=== PATIENT | male | born 1955 | race Caucasian/White ===

== ENCOUNTER → 2016-08-12 | Outpatient (CLI) | payer MEDICAID ==
[~2016-08-12] MED LIST: ALL100T PO; AML5T PO; ATOR40TA52 PO; CLOP75TA41 PO; COLC0.6T56 PO; FENO145T20 PO; INSUINJ37 SC; INSUINJ9 IJ; ISOS30TA4 PO; LEVO75TA50 PO; METO25TA62 PO; NITR0.4S29 SL
[2016-08-12 10:10] VITALS: BP 144/55
[2016-08-12 10:45] VITALS: BP 138/66
[2016-08-12 16:30] LABS: Basophils # (auto) 0 uL; Basophils % (auto) 0.4 % (0.0-2.0); Eosinophils # (auto) 0.2 uL; Eosinophils % (auto) 3.1 % (0.0-7.0); Hematocrit 42.6 % (41.0-53.0); Hemoglobin 13.7 g/dL (13.5-17.5); Lymphocytes # (auto) 1.9 uL; Lymphocytes % (auto) 23.2 % (10.0-50.0); Mean Corpuscular Hemoglobin 31.9 pg (28.0-32.0); Mean Corpuscular Hgb Conc. 32.2 g/dL (32.0-36.0); Mean Corpuscular Volume 99.2 fL (80.0-100.0); Mean Platelet Volume 8.9 fL (7.4-10.4); Monocytes # (auto) 0.8 uL; Monocytes % (auto) 9.4 % (0.0-12.0); Neutrophils # (auto) 5.1 uL; Neutrophils % (auto) 63.9 % (37.0-80.0); Platelet Count (auto) 203 10^3/uL (140-450); Red Cell Distribution Width 15.1 % (11.6-16.0); White Blood Cell 8.1 10^3/uL (4.4-10.8)
[2016-08-12 16:52] LABS: BUN/Creatinine Ratio 15.7; Calcium 8.1 mg/dL (8.5-10.1); Potassium 4.8 mmol/L (3.5-5.1)
[2016-08-12 17:07] LABS: INR 1.11 (0.9-1.15); Partial Thromboplastin Time 27.1 sec (22.64-33.71); Prothrombin Time 11.4 sec (9.37-12.3)
== END | disposition home or self-care (01) ==
LOC: Rad HDHVI 09:45
PROVIDERS: ATTEND Internal Medicine Cardiovascular Disease
DX: I10 Essential (primary) hypertension (principal); D64.9 Anemia, unspecified; R79.1 Abnormal coagulation profile
CPT/HCPCS: 36415; 71020; 80048; 85025; 85049; 85610; 85730; G0463

== ENCOUNTER 2016-08-14 12:03 | Inpatient (IN) | payer MEDICAID ==
[~2016-08-14] VITALS: Ht 177.8 cm; Wt 98.9 kg
[2016-08-14] MEDS ORDERED: LIDOCAINE 2%HCL (LOCAL ANESTH.) INJ 20ML MDV ONE ×2 (13:31→14:12)
[2016-08-14] MEDS ORDERED: IOHEXOL 350 MG/ML 100ML IJ ONE (13:31)
[2016-08-14] MEDS ORDERED: SODIUM CHL 0.9% 50 ML ONE (13:42)
[2016-08-14] MEDS ORDERED: fentaNYL CITRATE 100 MCG/2 ML VL ONE (13:42)
[2016-08-14] MEDS ORDERED: MIDAZOLAM HCL 1MG/1ML-2 ML VIAL ONE (13:42)
[2016-08-14] MEDS ORDERED: ANGIOMAX 250 MG VIAL IV ONE (13:42)
[2016-08-14] MEDS ORDERED: SODIUM CHLORIDE 0.9% 1,000 ML IV SCH (15:37)
[2016-08-14] MEDS ORDERED: HYDROcodone-ACET 5/325MG TAB PO PRN (15:45)
[2016-08-14] MEDS ORDERED: DEXTROSE (50%) 50ML SYRG IV PRN (15:45)
[2016-08-14] MEDS ORDERED: MORPHINE SULF INJ 2 MG/ML SYRINGE 1ML IV PRN (15:45)
[2016-08-14] MEDS ORDERED: ALBUTEROL SULF 2.5 MG/0.5ML(0.5%) NEB SOLN NEB PRN (15:45)
[2016-08-14] MEDS ORDERED: ACETAMINOPHEN 500 MG TAB PO PRN (15:45)
[2016-08-14] MEDS ORDERED: amLODIPine BESYLATE 5 MG TAB PO ONE (16:15)
[2016-08-14] MEDS ORDERED: CLOPIDOGREL BISULFATE 75 MG TAB PO ONE (16:15)
[2016-08-14] MEDS ORDERED: ALLOPURINOL 100 MG TAB PO ONE (16:15)
[2016-08-14] MEDS ORDERED: ISOSORBIDE DINITRATE 10 MG TAB PO ONE (16:15)
[2016-08-14 16:24] VITALS: BP 160/72
[2016-08-14 16:53] VITALS: BP 160/72
[2016-08-14] MEDS: ACCU-CHEK COMFORT CURVE STRIP VI SCH ×2 (17:00→21:59)
[2016-08-14] MEDS: InsuLIN REG 1unit/0.01ml Soln (100units/ml) SC SCH (17:00)
[2016-08-14] MEDS ORDERED: PATIENTS OWN MEDICATION (Atorvastatin Calcium 1 TAB) PO SCH ×2 (18:00)
[2016-08-14] MEDS ORDERED: ATORVASTATIN 20 MG TAB PO SCH (18:00)
[2016-08-14 21:43] VITALS: BP 178/77
[2016-08-14] MEDS: SODIUM CHLOR 0.9% PF (SALINE LOCK) 10ML VIAL IV SCH (21:54)
[2016-08-14] MEDS: METOPROLOL TARTRATE 25 MG TAB PO SCH (21:57)
[2016-08-14] MEDS: COLCHICINE 0.6 MG TAB/CAP PO SCH (21:58)
[2016-08-14] MEDS ORDERED: COLCHICINE 0.6 MG TAB/CAP PO SCH (22:00)
[2016-08-14] MEDS ORDERED: INSULIN GLARGINE 15 UNIT SC SCH (22:00)
[2016-08-14] MEDS ORDERED: INSULIN DETEMIR(LEVEMIR) 1unit/0.01ml Soln (100units/ml) SC SCH (22:00)
[2016-08-14] MEDS ORDERED: PATIENTS OWN MEDICATION (Metoprolol Succinate (Metoprolol Succinate Er) 1 TAB) PO SCH ×2 (22:00)
[2016-08-14] MEDS ORDERED: InsuLIN REG 1unit/0.01ml Soln (100units/ml) SC SCH (22:00)
[2016-08-14] MEDS ORDERED: FENO145T20 PO (22:58)
[2016-08-14 23:08] VITALS: BP 178/77
[2016-08-15 05:34] VITALS: BP 152/67
[2016-08-15 06:50] LABS: BUN/Creatinine Ratio 21.1; Calcium 8.9 mg/dL (8.5-10.1)
[2016-08-15] MEDS: SODIUM CHLOR 0.9% PF (SALINE LOCK) 10ML VIAL IV SCH ×2 (06:51→14:00)
[2016-08-15] MEDS: ACCU-CHEK COMFORT CURVE STRIP VI SCH ×2 (06:51→11:30)
[2016-08-15] MEDS: InsuLIN REG 1unit/0.01ml Soln (100units/ml) SC SCH ×2 (06:51→11:30)
[2016-08-15] MEDS ORDERED: LEVOTHYROXINE SODIUM 25 MCG TAB PO SCH (07:00)
[2016-08-15 08:46] LABS: Basophils # (auto) 0 uL; Basophils % (auto) 0.3 % (0.0-2.0); Eosinophils # (auto) 0.3 uL; Hematocrit 46.3 % (41.0-53.0); Hemoglobin 15.4 g/dL (13.5-17.5); Lymphocytes # (auto) 1.9 uL; Lymphocytes % (auto) 18.4 % (10.0-50.0); Mean Corpuscular Hgb Conc. 33.3 g/dL (32.0-36.0); Mean Corpuscular Volume 96.4 fL (80.0-100.0); Mean Platelet Volume 8.6 fL (7.4-10.4); Monocytes % (auto) 10.3 % (0.0-12.0); Neutrophils # (auto) 6.9 uL; Platelet Count (auto) 225 10^3/uL (140-450); Red Cell Distribution Width 14.3 % (11.6-16.0); White Blood Cell 10.1 10^3/uL (4.4-10.8)
[2016-08-15 08:48] VITALS: BP 145/74
[2016-08-15] MEDS ORDERED: FENOFIBRATE PO SCH (10:00)
[2016-08-15] MEDS: METOPROLOL TARTRATE 25 MG TAB PO SCH (10:00)
[2016-08-15] MEDS ORDERED: ALLOPURINOL 100 MG TAB PO SCH ×2 (10:00)
[2016-08-15] MEDS ORDERED: PATIENTS OWN MEDICATION (Isosorbide Mononitrate (Isosorbide Mononitrate Er) 1 TAB) PO SCH ×2 (10:00)
[2016-08-15] MEDS ORDERED: FENOFIBRATE 48MG PO SCH (10:00)
[2016-08-15] MEDS ORDERED: amLODIPine BESYLATE 5 MG TAB PO SCH (10:00)
[2016-08-15] MEDS: COLCHICINE 0.6 MG TAB/CAP PO SCH (10:00)
[2016-08-15] MEDS ORDERED: CLOPIDOGREL BISULFATE 75 MG TAB PO SCH (10:00)
[2016-08-15] MEDS ORDERED: PATIENTS OWN MEDICATION (Levothyroxine Sodium (Synthroid) 1 TAB) PO SCH (10:00)
[2016-08-15] MEDS ORDERED: ISOSORBIDE DINITRATE 10 MG TAB PO SCH (10:00)
[2016-08-15 12:37] VITALS: BP 132/57
[2016-08-15 15:48] VITALS: BP 132/57
== END 2016-08-15 16:10 | disposition home or self-care (01) | DRG 173 ==
LOC: CATH 12:03 → CENTRAL 12:04
PROVIDERS: ADMIT Internal Medicine Cardiovascular Disease; ATTEND Internal Medicine Cardiovascular Disease
PROC: 047K3Z1 Dilation of Right Femoral Artery using Drug-Coated Balloon, Percutaneous Approach (ICD-10-PCS; principal; 2016-08-14)
PROC: 047M3Z1 Dilation of Right Popliteal Artery using Drug-Coated Balloon, Percutaneous Approach (ICD-10-PCS; 2016-08-14)
PROC: B41G1ZZ Fluoroscopy of Left Lower Extremity Arteries using Low Osmolar Contrast (ICD-10-PCS; 2016-08-14)
DX: I73.9 Peripheral vascular disease, unspecified (principal); E78.5 Hyperlipidemia, unspecified; I25.10 Atherosclerotic heart disease of native coronary artery without angina pectoris; Z72.0 Tobacco use
CPT/HCPCS: 36415; 80048; 82962; 85025; 85049; 87081; J1815; J2250

== ENCOUNTER → 2018-05-03 | Outpatient (CLI) | payer MEDICAID ==
[~2018-05-03] MED LIST changes: -FENO145T20 PO; +FENO1TAB42 PO
== END | disposition home or self-care (01) ==
LOC: Rad HDHVI 08:29
PROVIDERS: ATTEND Internal Medicine Cardiovascular Disease
DX: Z01.810 Encounter for preprocedural cardiovascular examination (principal); J44.9 Chronic obstructive pulmonary disease, unspecified; I73.9 Peripheral vascular disease, unspecified; E78.2 Mixed hyperlipidemia
CPT/HCPCS: 93306; 93926

== ENCOUNTER → 2018-05-11 | Outpatient (CLI) | payer MEDICAID ==
[~2018-05-11] VITALS: Ht 177.8 cm; Wt 97.1 kg
[~2018-05-11] MED LIST changes: +ADENOSINE 82 MG in GIVE UN-DILUTED 0 ML IV ONE; +ADENOSINE 90 MG/30 ML INJ IV ONE
== END | disposition home or self-care (01) ==
LOC: Rad HDHVI 07:48
PROVIDERS: ATTEND Internal Medicine Cardiovascular Disease
DX: E78.00 Pure hypercholesterolemia, unspecified (principal); J44.9 Chronic obstructive pulmonary disease, unspecified; I73.9 Peripheral vascular disease, unspecified; R07.89 Other chest pain
CPT/HCPCS: 78452; 93005; 96374; 96375; A9500; J0153